=== PATIENT | male | born 2000 | race Caucasian/White ===

== ENCOUNTER 2023-05-02 23:20 | Emergency (ER) | payer SELFPAY ==
[~2023-05-02] VITALS: Ht 170.2 cm; Wt 70.3 kg
[2023-05-02 23:50] VITALS: BP 140/69; PULSE 68; RESP 17; TEMP 97.9; O2SAT 98
[2023-05-03] MEDS ORDERED: COROTSOL LEFT EAR (01:37)
[2023-05-03] MEDS ORDERED: IBUP-2213 PO (01:37)
== END 2023-05-03 02:23 | disposition home or self-care (01) ==
LOC: MED 23:20
DX: H60.92 Unspecified otitis externa, left ear (principal)
CPT/HCPCS: 99283